=== PATIENT | female | born 1995 | race Caucasian/White ===

== ENCOUNTER 2017-06-28 11:42 | Emergency (ER) | payer OTHER | END 2017-06-28 12:56 | disposition home or self-care (01) | LOC: FTE 11:42 → E/R 12:56 | DX: H66.91 Otitis media, unspecified, right ear (principal); J06.9 Acute upper respiratory infection, unspecified | CPT/HCPCS: 99283; Z7502 ==

== ENCOUNTER 2017-11-19 01:59 | Emergency (ER) | payer OTHER | END 2017-11-19 04:00 | disposition home or self-care (01) | LOC: FTE 01:59 | DX: J20.9 Acute bronchitis, unspecified (principal); H65.03 Acute serous otitis media, bilateral | CPT/HCPCS: 99284; Z7502 ==

== ENCOUNTER 2018-04-24 02:20 | Emergency (ER) | payer MEDICAID, OTHER | END 2018-04-24 03:32 | disposition home or self-care (01) | LOC: FTE 02:20 | DX: J02.9 Acute pharyngitis, unspecified (principal); R10.9 Unspecified abdominal pain; R11.0 Nausea | CPT/HCPCS: 99282; Z7502 ==

== ENCOUNTER 2018-07-05 17:04 | Emergency (ER) | payer SELFPAY, MEDICAID ==
[2018-07-05] MEDS: KETOROLAC 60 MG INJ IM (18:23)
== END 2018-07-05 19:06 | disposition home or self-care (01) ==
LOC: FTE 17:04
DX: H92.02 Otalgia, left ear (principal)
CPT/HCPCS: 81025; 96372; 99284-25

== ENCOUNTER 2019-02-09 22:29 | Emergency (ER) | payer SELFPAY | END 2019-02-10 01:02 | disposition home or self-care (01) | LOC: FTE 22:29 | DX: F41.9 Anxiety disorder, unspecified (principal) | CPT/HCPCS: 81025; 99282 ==